=== PATIENT | female | born 1980 | race Caucasian/White ===

== ENCOUNTER 2017-03-28 12:11 | Day surgery (SDC) | payer OTHER ==
[~2017-03-28] VITALS: Ht 167.6 cm; Wt 80.3 kg
[2017-03-28 14:12] VITALS: Ht 167.6 cm; Wt 80.3 kg
[2017-03-28] MEDS ORDERED: NO HOME MEDS (14:24)
[2017-03-28 14:44] VITALS: BP 129/78; PULSE 58; RESP 18
[2017-03-28] MEDS ORDERED: PROPOFOL 20 ML ONE (15:11)
[2017-03-28] MEDS ORDERED: MIDAZOLAM 1 MG/ML 2 ML INJ ONE (15:11)
[2017-03-28] MEDS ORDERED: FENTAnyl 50 MCG/ML VIAL ONE (15:11)
--- NOTE | 2017-03-28 15:30 | OPPN ---
Date/Time of Note Date/Time of Note DATE: 03/28/17 TIME: 15:28 Proc Note GI Procedure Date 03/28/17 Indication: other (Hematochezia/family history of colon cancer) Pre-procedure Diagnosis Hematochezia/family history of colon cancer Post-procedure Diagnosis Impression: Moderate-sized internal hemorrhoids. Otherwise normal colonoscopy to cecum. Plan: Follow up as scheduled] High fiber diet Annual hemoccult stool testing [Surveillance colonoscopy in 5 years] . Procedure Performed: Colonoscopy Surgeon ELIUD LOMELI MD See signature line Vamp Strap Ironer none Anesthesia Type: MAC Anesthesiologist: PAYAL AGUILERA MD Tourniquet Time none EBL none Transfusion required none Biopsy 1: None Grafts/Implants none Tubes/Drains none Complication(s) none Disposition: home Procedure Description After informed consent, with the patient/relatives understanding the procedure, its indications and potential risks and complications, including but not limited to: Allergic reaction, bleeding, perforation, infection, and after all pertinent questions were answered to the patient's satisfaction, the patient/ relatives signed the witnessed informed consent. Following this, premedication was administered slowly IV push under careful cardiovascular and respiratory monitoring with pulse OXIMETRY, automatic blood pressure, and laboratory monitor. Once the sedative effect was achieved, the patient was placed in the left lateral decubitus position, digital rectal examination was performed. The colonoscope was then introduced and advanced under visual control throughout all segments of the colon including: the rectum, sigmoid, descending colon, splenic flexure, transverse colon, hepatic flexure, ascending colon and finally reaching the cecum which was clearly identified by transillumination, finger indentation and the ileocecal valve. Careful examination of the mucosa of the lower gastrointestinal tract both on insertion as well as withdrawal of the instrument disclosed the following findings: PREPARATION QUALITY: [Adequate], RECTAL EXAM: The anorectal area was visualized examined and digital rectal examination performed with the following findings: No evidence of perirectal disease, no masses. COLONIC MUCOSA: The mucosa of all segments of the colon was carefully examined and showed the following findings: There are moderate internal hemorrhoids. Otherwise the examined mucosa appears within normal limits. There is no evidence of inflammatory changes, diverticular formation, polyps or other neoplasms, vascular malformation, or any other abnormality. The instrument was then withdrawn, the patient tolerated the procedure well and was transferred out of the Endoscopy Suite awake and in good condition to continue recovery under observation. Copies To: : ELIUD LOMELI MD, MORDO MD Mar 28, 2017 15:30
[2017-03-28 15:57] VITALS: BP 123/76; RESP 14
== END 2017-03-28 17:47 | disposition home or self-care (01) ==
LOC: GIL 12:11
PROVIDERS: ATTEND Internal Medicine Gastroenterology
DX: K92.1 Melena (principal); K64.8 Other hemorrhoids; Z85.038 Personal history of other malignant neoplasm of large intestine
CPT/HCPCS: 45378; 84703; J2250; J3010; Z7610